=== PATIENT | female | born 1990 | race American Indian/Alaskan Native ===

== ENCOUNTER 2019-05-05 17:20 | Inpatient (IN) | payer MEDICAID ==
[2019-05-05] MEDS ORDERED: MINERAL OIL PO PRN ×2 (17:28→19:17)
[2019-05-05] MEDS ORDERED: SUBLIMAZE IV PRN (17:28)
[2019-05-05] MEDS ORDERED: STADOL IV PRN (17:28)
[2019-05-05] MEDS ORDERED: BRETHINE IVP PRN ×2 (17:28→19:17)
[2019-05-05] MEDS ORDERED: XYLOCAINE 2% INFILTRATI ONE ×2 (17:28→19:17)
[2019-05-05] MEDS ORDERED: BRETHINE SUB-Q PRN ×2 (17:28→19:17)
[2019-05-05] MEDS ORDERED: PITOCin/NS 20 UNIT/1000ML DRIP 20 UNITS/1,000 ML BAG IV SCH ×2 (18:00→20:00)
[2019-05-05] MEDS ORDERED: LACTATED RINGERS 1,000 ML IV SCH ×2 (18:00→20:00)
[2019-05-05] MEDS ORDERED: PITOCin/NS 30 UNIT/500ML 30 UNITS/500 ML BAG IV SCH ×4 (18:00→20:00)
[2019-05-05] MEDS ORDERED: ZOFRAN IV PRN ×2 (19:17→22:01)
[2019-05-05] MEDS ORDERED: PHENERGAN PO PRN ×2 (19:17→22:01)
[2019-05-05] MEDS ORDERED: NARCAN 0.4 MG/1 ML IV PRN (19:17)
--- NOTE | 2019-05-05 19:27 | History and Physical Report ---
History of Present Illness Date of examination: 05/05/19 Date of admission: 05/05/19 19:08 Chief complaint: contractions History of present illness: This is a 28 yo at 37 weeks here for contractions. She stated that she went into labor and grossly ruptured water and went to [facility]. She is a patient of Dr. Greene. GBS neg. labs neg. Past History Past Medical History: no pertinent history Past Surgical History: no surgical history PU[employer] History: herpes (no lesions noted) Family/Genetic History: none Social history: single. denies: smoking, alcohol abuse, prescription drug abuse - Obstetrical History Expected Date of Delivery: 05/26/19 Actual Gestation: 37 Week(s) 0 Day(s) : 5 Para: 2 Hx # Term Pregnancies: 2 Number of Pregnancies: 0 Spontaneous Abortions: 0 Induced : 0 Number of Living Children: 2 Medications and Allergies Allergies Allergy/AdvReac Type Severity Reaction Status Date / Time No Known Allergies Allergy Verified 05/05/19 17:33 Active Meds: Active Medications Butorphanol Tartrate (Stadol) 1 mg IV Q2H PRN PRN Reason: Pain, Moderate (4-6) Ephedrine Sulfate (Ephedrine Sulfate) 10 mg IV Q2M PRN PRN Reason: Hypotension Fentanyl (Sublimaze) 100 mcg IV Q2H PRN PRN Reason: Labor Pain Oxytocin/Sodium Chloride (Pitocin/Ns 20 Unit/1000ml Drip) 20 units in 1,000 mls @ 125 mls/hr IV DIRECT HWIT Oxytocin/Sodium Chloride (Pitocin/Ns 30 Unit/500ml) 30 units in 500 mls @ 1 mls/hr IV TITR WHIT; Protocol Oxytocin/Sodium Chloride (Pitocin/Ns 30 Unit/500ml) 30 units in 500 mls @ 4 mls/hr IV TITR WHIT; Protocol Lactated Ringer's (Lactated Ringers) 1,000 mls @ 125 mls/hr IV DIRECT WHIT Mineral Oil (Mineral Oil) 30 ml PO QHS PRN PRN Reason: Constipation Terbutaline Sulfate (Brethine) 0.25 mg SUB-Q ONCE PRN PRN Reason: Hyperstimulation/Hypertonicity Terbutaline Sulfate (Brethine) 0.25 mg IVP ONCE PRN PRN Reason: Hyperstimulation/Hypertonicity Review of Systems All systems: negative - Vital Signs Vital signs: Vital Signs Temp Resp 99.1 F 18 05/05/19 17:45 05/05/19 17:45 Temp Pulse Resp BP Pulse Ox 99.1 F 95 H 18 133/76 97 05/05/19 17:45 05/05/19 19:18 05/05/19 17:45 05/05/19 19:01 05/05/19 19:18 - Physical Exam Breasts: Positive: normal Cardiovascular: Regular rate, Normal S1 Lungs: Positive: Clear to auscultation, Normal air movement Abdomen: Positive: normal appearance, soft, normal bowel sounds. Negative: distention, tenderness, guarding Genitourinary (Female): Positive: normal external genitalia, normal perenium Vulva: both: normal Vagina: Positive: normal moisture Uterus: Positive: normal size Anus/Rectum: Positive: normal perianal skin, heme negative Extremities: Positive: normal Deep Tendon Reflex Grade: Normal +2 - Obstetrical FHR: category 1 Cervical Dilatation: 6 Cervical Effacement Percentage: 80 station: -2 Uterine Contraction Pattern: Regular Uterine Tone Measurement Phase: Contraction Uterine Contraction Intensity: Moderate Results All other labs normal. Assessment and Plan A/P IUP 37 weeks GBS neg active labor ivf, labs expect vaginal delivery
[2019-05-05 19:34] LABS: Hematocrit 37.9 % (30.3-42.9); Hemoglobin 12.6 gm/dl (10.1-14.3); Mean Corpuscular HGB Conc 33 % (30-34); Mean Corpuscular Volume 93 fl (79-97); Platelet Count 160 K/mm3 (140-440); Red Blood Count 4.08 M/mm3 (3.65-5.03); Red Cell Distribution Width 14.6 % (13.2-15.2)
[2019-05-05] MEDS ORDERED: CYTOTEC ONE (21:58)
[2019-05-05] MEDS ORDERED: PERCOCET 5/325 PO PRN (22:01)
[2019-05-05] MEDS ORDERED: PHENERGAN PR PRN (22:01)
[2019-05-05] MEDS ORDERED: BENADRYL PO PRN (22:01)
[2019-05-05] MEDS ORDERED: TUCKS PAD TP PRN (22:01)
[2019-05-05] MEDS ORDERED: TORADOL IV PRN (22:01)
[2019-05-05] MEDS ORDERED: MILK OF MAGNESIA PO PRN (22:01)
[2019-05-05] MEDS ORDERED: DULCOLAX PR PRN (22:01)
[2019-05-05] MEDS ORDERED: LANSINOH TP PRN (22:01)
[2019-05-05] MEDS ORDERED: NORCO 5/325 PO PRN (22:01)
[2019-05-05] MEDS ORDERED: TYLENOL PO PRN (22:01)
--- NOTE | 2019-05-05 22:25 | Procedure Note ---
OB Delivery Note - Delivery Date of Delivery: 05/05/19 Surgeon: ARI MONTES Estimated blood loss: 300cc - Vaginal Delivery presentation: vertex Delivery position: OA Delivery augmentation: rupture of membranes, pitocin Route of delivery: Delivery placenta: spontaneous Episiotomy: none Delivery laceration: none Anesthesia: none Delivery comments: Patient was noted to be c/c/ and and commeced to pushing a viable male Apgars 9 and 9 at 2140. The cord was clamped and cut and placed on [facility] [place] [place] abdomen. The placneta delivered at 2155 intact with 3 vessel cord. Weight of baby is 7 pounds 9 oz. No lacerations noted. EBL 300 cc. - A at 1 minute: 9 at 5 minutes: 9 Infant Gender: Male (7 pounds 5.9 oz)
[2019-05-05] MEDS ORDERED: SODIUM CHLORIDE FLUSH SYRINGE 10 ML IV NR (23:00)
[2019-05-05] MEDS: IBUPROFEN PO SCH (23:01)
[2019-05-06] MEDS: IBUPROFEN PO SCH ×4 (05:29→22:04)
[2019-05-06] MEDS ORDERED: M-M-R II VACCINE SUB-Q ONE (06:00)
[2019-05-06] MEDS ORDERED: BOOSTRIX IM ONE (06:00)
[2019-05-06] MEDS: COLACE PO SCH ×2 (10:24→22:04)
[2019-05-06] MEDS: PRENATAL VITAMIN PO SCH (10:24)
--- NOTE | 2019-05-06 10:24 | Discharge Summary ---
Providers - Providers Date of Admission: 05/05/19 19:08 Date of discharge: 05/07/19 Attending physician: PAO VALLE Primary care physician: PAO VALLE Hospitalization Reason for admission: active labor Delivery: Episiotomy: none Laceration: none Incision: normal Other procedures: none Discharge diagnosis: IUP at term delivered Hospital course: unremarkable hospital course Condition at discharge: Good Disposition: DC-01 TO HOME OR SELFCARE Plan - Discharge Medications Prescriptions: Ferrous Sulfate [Feosol 325 MG tab] 325 mg PO QDAY #30 tablet Ibuprofen [Motrin] 600 mg PO Q8H PRN #30 tablet PRN Reason: Pain oxyCODONE /ACETAMINOPHEN [Percocet 5/325] 1 tab PO Q6HR PRN #30 tablet PRN Reason: Pain - Provider Discharge Summary Activity: routine, no sex for 6 weeks, no strenuous exercise Diet: routine Instructions: routine Additional instructions: [] Smoking cessation referral if applicable(refer to patient education folder for contact #) [] Refer to [employer] Booklet Call your doctor immediately for: * Fever > 100.5 * Heavy vaginal bleeding ( >1 pad per hour) * Severe persistent headache * Shortness of breath * Reddened, hot, painful area to leg or breast * Drainage or odor from incision. * Keep incision clean and dry at all times and follow doctor's instructions regarding bathing/showering - Follow up plan Follow up: PAO VALLE MD [Primary Care Provider] - 06/02/19
--- NOTE | 2019-05-06 10:24 | Progress Note ---
Assessment and Plan A/P PPD 1 doing well vss d/c home tomorrow Subjective - Subjective Date of service: 05/06/19 Principal diagnosis: s/p Interval history: This is a 28 yo at 37 weeks here for contractions. She stated that she went into labor and grossly ruptured water and went to [facility]. She is a patient of Dr. Greene. GBS neg. labs neg. Patient reports: appetite normal, voiding normally, pain well controlled, flatus, ambulating normally Minetto: doing well Objective - Vital Signs Latest vital signs: Vital Signs Temp Pulse Resp BP BP Pulse Ox 05/06/19 07:53 74 124/51 95 05/06/19 05:45 98.4 F 88 18 126/56 97 05/06/19 05:44 98.4 F 84 18 126/56 97 05/06/19 00:57 18 05/06/19 00:07 98.2 F 84 18 123/69 98 05/05/19 23:11 77 127/76 05/05/19 22:56 80 124/74 05/05/19 22:41 73 127/71 05/05/19 22:26 87 124/67 05/05/19 22:11 90 125/68 05/05/19 21:56 90 114/68 05/05/19 19:23 99 H 96 05/05/19 19:18 95 H 97 05/05/19 19:13 99 H 97 05/05/19 19:08 106 H 98 05/05/19 19:03 100 H 98 05/05/19 19:01 96 H 133/76 05/05/19 17:45 99.1 F 18 Intake and Output 05/05/19 05/06/19 05/06/19 23:59 07:59 15:59 Intake Total 120 Output Total 400 400 Balance -280 -400 Intake: Intake, Free Water 120 Output: Urine 400 400 Void 400 400 Other: Total, Output Amount 400 400 # Voids Void 1 Weight 85.729 kg Estimated Blood Loss 300 - Exam Breasts: Present: normal Cardiovascular: Present: Regular rate, Normal S1 Lungs: Present: Clear to auscultation, Normal air movement Abdomen: Present: normal appearance, soft, normal bowel sounds. Absent: distention, tenderness, guarding Vulva: both: normal Uterus: Present: normal, firm, fundal height below umbilicus. Absent: bogg iness, tenderness Extremities: Present: normal Deep Tendon Reflex Grade: Normal +2
[2019-05-06 12:20] LABS: Hematocrit 34.5 % (30.3-42.9); Hemoglobin 11.6 gm/dl (10.1-14.3)
[2019-05-06] MEDS: SENOKOT S PO SCH (22:07)
[2019-05-07] MEDS: IBUPROFEN PO SCH ×2 (05:40→12:37)
[2019-05-07] MEDS: PRENATAL VITAMIN PO SCH (10:09)
[2019-05-07] MEDS: COLACE PO SCH (10:09)
[2019-05-07 12:30] VITALS: BP 133/80
[2019-05-07] MEDS: SENOKOT S PO SCH (12:40)
== END 2019-05-07 14:30 | disposition home or self-care (01) | DRG 775 ==
LOC: TRG 17:20 → OBSVTOIN 19:08 → LD 19:08 → OB 05-06 00:15
PROVIDERS: ADMIT Obstetrics & Gynecology; ATTEND Obstetrics & Gynecology
PROC: 10E0XZZ Delivery of Products of Conception, External Approach (ICD-10-PCS; principal; 2019-05-05)
PROC: 3E0234Z Introduction of Serum, Toxoid and Vaccine into Muscle, Percutaneous Approach (ICD-10-PCS; 2019-05-06)
DX: O80 Encounter for full-term uncomplicated delivery (principal); Z3A.37 37 weeks gestation of pregnancy; Z37.0 Single live birth; Z23 Encounter for immunization
CPT/HCPCS: 36415; 85014; 85018; 85027; 86592; 86850; 86900; 86901; 90471; 90715; G0378; J2590; J3010; J7120